=== PATIENT | male | born 1990 | race Caucasian/White ===

== ENCOUNTER 2018-05-04 18:17 | Emergency (ER) | payer MEDICAID ==
[~2018-05-04] VITALS: Ht 175.3 cm; Wt 100.0 kg
[2018-05-04] MEDS ORDERED: KETOROLAC 30MG/ML VIAL IV STA (19:36)
[2018-05-04] MEDS ORDERED: SODIUM CHLORIDE 0.9% 1,000 ML IV ONE (19:36)
[2018-05-04 22:08] LABS: BASOPHILS % 0.2 % (0.0-2.0); EOSINOPHILS % 0.1 % (0.0-5.0); HEMATOCRIT. 40.7 % (42.0-52.0); HEMOGLOBIN. 13.8 g/dL (14.0-18.0); LYMPHOCYTES % 9.6 % (20.0-50.0); MEAN CORPUSCULAR VOLUME 91.3 fL (80.0-94.0); MEAN PLATELET VOLUME 7.4 fl (7.4-10.4); MONOCYTES % 5.6 % (2.0-8.0); NEUTROPHILS % 84.5 % (40.0-76.0); PLATELET 215 x1000/uL (130-400); RED BLOOD CELL COUNT 4.45 mill/uL (4.7-6.1); RED CELL DISTRIBUTION WIDTH 12.9 % (11.6-14.6)
[2018-05-04 22:15] LABS: CHLORIDE 106 mEq/L (98-107)
[2018-05-04 22:37] LABS: CLARITY URINE CLEAR (CLEAR); COLOR URINE YELLOW (YELLOW); KETONES URINE NEGATIVE (NEGATIVE); LEUKOCYTE ESTERASE URINE NEGATIVE (NEGATIVE); NITRITE URINE NEGATIVE (NEGATIVE); OCCULT BLOOD URINE NEGATIVE (NEGATIVE); PROTEIN URINE NEGATIVE (NEGATIVE); SPECIFIC GRAVITY URINE 1.012 (1.005-1.030)
[2018-05-04 23:41] VITALS: BP 117/62
== END 2018-05-04 23:59 | disposition home or self-care (01) ==
LOC: ER 18:17
DX: R10.9 Unspecified abdominal pain (principal)
CPT/HCPCS: 36415; 74176; 80053; 81003; 83690; 85025; 96361; 96374; 99284; J1885; J7030; Z7610

== ENCOUNTER 2018-12-14 20:43 | Emergency (ER) | payer MEDICAID ==
[~2018-12-14] VITALS: Ht 177.8 cm; Wt 103.0 kg
[2018-12-14 21:50] VITALS: BP 153/90
[2018-12-14] MEDS ORDERED: KETOROLAC 60MG/2ML VIAL IM ONE (22:00)
== END 2018-12-14 23:40 | disposition home or self-care (01) ==
LOC: ER 20:43
DX: S52.121A Displaced fracture of head of right radius, initial encounter for closed fracture (principal); W01.0XXA Fall on same level from slipping, tripping and stumbling without subsequent striking against object, initial encounter; Y93.89 Activity, other specified; Y92.89 Other specified places as the place of occurrence of the external cause
CPT/HCPCS: 24600; 73070; 73100; 73552; 96372; 99284; J1885; Z7610; A4565